=== PATIENT | female | born 1975 | race Caucasian/White ===

== ENCOUNTER 2017-04-01 17:28 | Emergency (ER) | payer MEDICARE, MEDICAID ==
[2017-04-01] MEDS ORDERED: IBUPROFEN 600 MG TABLET PO ONE (18:25)
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
--- NOTE | 2017-04-01 19:36 | RADIOLOGY REPORT (SQ) ---
EXAM DESCRIPTION: KNEE LEFT 3 VIEWS COMPLETED DATE/TIME: 04/01/2017 7:20 pm REASON FOR STUDY: fall, pain COMPARISON: None. NUMBER OF VIEWS: Three views TECHNIQUE: AP, lateral, and sunrise patella radiographic images acquired of the left knee. LIMITATIONS: None. FINDINGS: MINERALIZATION: Normal. BONES: No acute fracture or dislocation. No worrisome bone lesions. JOINT: No effusion. SOFT TISSUES: No soft tissue swelling. No radio-opaque foreign body. OTHER: No other significant finding. IMPRESSION: NEGATIVE STUDY OF THE LEFT KNEE. NO RADIOGRAPHIC EVIDENCE OF ACUTE INJURY. TECHNICAL DOCUMENTATION: JOB ID: [id number] [employer]- All Rights Reserved
[2017-04-01 20:25] VITALS: BP 130/71
== END 2017-04-01 20:25 | disposition home or self-care (01) ==
LOC: ER 17:28
DX: M25.562 Pain in left knee (principal); M54.5 Low back pain; W08.XXXA Fall from other furniture, initial encounter; F17.200 Nicotine dependence, unspecified, uncomplicated
CPT/HCPCS: 99283; 73562; L1830; A9270

== ENCOUNTER 2017-09-02 23:42 | Emergency (ER) | payer MEDICARE, MEDICAID ==
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
[2017-09-03 00:37] LABS: ABSOLUTE BASOPHILS # (AUTO) 0.1 10^3/uL (0.0-0.2); ABSOLUTE EOSINOPHILS # (AUTO) 0.2 10^3/uL (0.0-0.6); ABSOLUTE LYMPHOCYTES (AUTO) 2.3 10^3/uL (0.5-4.7); ABSOLUTE MONOCYTES (AUTO) 0.6 10^3/uL (0.1-1.4); ABSOLUTE NEUT (AUTO) 4.1 10^3/uL (1.7-8.2); BASOPHILS % (AUTO) 0.8 % (0-2); EOSINOPHILS % (AUTO) 2.9 % (0-6); HEMOGLOBIN 13.3 g/dL (12.0-15.5); MEAN CORPUSCULAR HEMOGLOBIN 32.4 pg (27.0-33.4); MEAN CORPUSCULAR VOLUME 95 fl (80-97); MONOCYTES % (AUTO) 7.9 % (3-13); PLATELET COUNT 181 10^3/uL (150-450); RED CELL DISTRIBUTION WIDTH 13.1 % (11.5-14.0); SEGMENTED NEUTROPHILS % (AUTO) 56.4 % (42-78); TOTAL CELLS COUNTED % (AUTO) 100 %; WHITE BLOOD COUNT 7.2 10^3/uL (4.0-10.5)
[2017-09-03 01:19] LABS: ALANINE AMINOTRANSFERASE 17 U/L (9-52); ALBUMIN 3.8 g/dL (3.5-5.0); ALCOHOL 106 mg/dL (NONE DETECTED); ALKALINE PHOSPHATASE 49 U/L (38-126); ANION GAP 6 (5-19); ASPARTATE AMINO TRANSFERASE 44 U/L (14-36); BILIRUBIN,DIRECT 0.4 mg/dL (0.0-0.4); BILIRUBIN,TOTAL 0.6 mg/dL (0.2-1.3); BLOOD UREA NITROGEN 12 mg/dL (7-20); CALCIUM 9.2 mg/dL (8.4-10.2); CARBON DIOXIDE 29 mmol/L (22-30); CHLORIDE 110 mmol/L (98-107); GLUCOSE 78 mg/dL (75-110); POTASSIUM 3.1 mmol/L (3.6-5.0); SODIUM 144.5 mmol/L (137-145); TOTAL PROTEIN 6.5 g/dL (6.3-8.2)
[2017-09-03 01:22] LABS: ACETAMINOPHEN < 10 ug/mL (10-30); SALICYLATE < 1.0 mg/dL (2.0-20.0)
[2017-09-03 02:42] LABS: APPEARANCE,URINE CLEAR; BILIRUBIN,URINE NEGATIVE (NEGATIVE); COLOR,URINE YELLOW; GLUCOSE, URINE NEGATIVE (NEGATIVE); KETONES,URINE NEGATIVE (NEGATIVE); LEUKOCYTE ESTERASE,URINE NEGATIVE (NEGATIVE); NITRITE,URINE NEGATIVE (NEGATIVE); PROTEIN,URINE NEGATIVE (NEGATIVE); URINE SPECIFIC GRAVITY 1.006; UROBILINOGEN,URINE NEGATIVE mg/dL (<2.0)
[2017-09-03 03:03] LABS: URINE AMPHETAMINES SCREEN NEGATIVE; URINE BARBITURATES SCREEN NEGATIVE; URINE BENZODIAZEPINES SCREEN UNCONFIRMED POSITIVE; URINE COCAINE SCREEN NEGATIVE; URINE MARIJUANA (THC) SCREEN UNCONFIRMED POSITIVE; URINE METHADONE SCREEN NEGATIVE; URINE PHENCYCLIDINE SCREEN NEGATIVE
[2017-09-03] MEDS ORDERED: ZIPRASIDONE MESYLATE INJ/PF 20 MG SDV IM ONE (07:40)
--- NOTE | 2017-09-03 07:44 | EKG REPORT ---
SEVERITY:- NORMAL ECG - SINUS RHYTHM : Confirmed by: Jomar Mark MD 03-Sep-2017 07:43:51
[2017-09-03] MEDS ORDERED: LORAZEPAM INJ 2 MG/1 ML VIAL IM ONE (08:18)
--- NOTE | 2017-09-03 09:39 | RADIOLOGY REPORT (SQ) ---
EXAM DESCRIPTION: CT HEAD WITHOUT COMPLETED DATE/TIME: 09/03/2017 9:11 am REASON FOR STUDY: Head injury COMPARISON: 03/25/2014 TECHNIQUE: Axial images acquired through the brain without intravenous contrast. Images reviewed wi th bone, brain and subdural windows. Images stored on PACS. All CT scanners at this facility use dose modulation, iterative reconstruction, and/or weight based d osing when appropriate to reduce radiation dose to as low as reasonably achievable (ALARA). [facility]: Dose Right [facility]: CareDose [facility]: Dose Right [facility]: Teradose 4D [facility]: [employer] RADIATION DOSE: CT Rad equipment meets quality standard of care and radiation dose reduction techniq ues were employed. CTDIvol: 28.0 mGy. DLP: 504 mGy-cm. mGy. LIMITATIONS: Positioning. Patient motion. FINDINGS: VENTRICLES: Normal size and contour. CEREBRUM: No masses. No hemorrhage. No midline shift. No evidence for acute infarction. Normal gra y/white matter differentiation. No areas of low density in the white matter. CEREBELLUM: No masses. No hemorrhage. No alteration of density. No evidence for acute infarction. EXTRAAXIAL SPACES: No fluid collections. No masses. ORBITS AND GLOBE: No intra- or extraconal masses. Normal contour of globe without masses. CALVARIUM: No fracture. PARANASAL SINUSES: No fluid or mucosal thickening. SOFT TISSUES: No mass or hematoma. OTHER: No other significant finding. IMPRESSION: Motion artifact. If clinical suspicion of acute intracranial injury persists, repeat im aging is recommended when the patient is more stable. EVIDENCE OF ACUTE STROKE: NO. COMMENT: Quality ID # [id number]: Final reports with documentation of one or more dose reduction techniques (e.g., Automated exposure control, adjustment of the mA and/or kV according to patient size, use of iterative reconstruction technique) TECHNICAL DOCUMENTATION: JOB ID: [id number] [employer]- All Rights Reserved Reading location - IP/workstation name: [facility]-[email or web address]
--- NOTE | 2017-09-03 09:40 | RADIOLOGY REPORT (SQ) ---
EXAM DESCRIPTION: CT CERVICAL SPINE WITHOUT COMPLETED DATE/TIME: 09/03/2017 9:11 am REASON FOR STUDY: Neck injury COMPARISON: None. TECHNIQUE: Axial images acquired through the cervical spine without intravenous contrast. Images re viewed with lung, soft tissue and bone windows. Reconstructed coronal and sagittal MPR images review ed. Images stored on PACS. All CT scanners at this facility use dose modulation, iterative reconstruction, and/or weight based d osing when appropriate to reduce radiation dose to as low as reasonably achievable (ALARA). [facility]: Dose Right [facility]: CareDose [facility]: Dose Right [facility]: Teradose 4D [facility]: Pure [employer] RADIATION DOSE: CT Rad equipment meets quality standard of care and radiation dose reduction techniq ues were employed. CTDIvol: 21.9 mGy. DLP: 393 mGy-cm. mGy. LIMITATIONS: Positioning. Patient motion. FINDINGS: ALIGNMENT: Anatomic. MINERALIZATION: Normal. VERTEBRAL BODIES: No fractures or dislocation. DISCS: No significant disc disease. FACETS, LATERAL MASSES, POSTERIOR ELEMENTS: No fractures. No dislocation. No acute findings. HARDWARE: None in the spine. VISUALIZED RIBS: No fractures. LUNG APICES AND SOFT TISSUES: No significant or acute findings. OTHER: No other significant finding. IMPRESSION: Motion artifact. No obvious fracture. If clinical suspicion of acute cervical spine in jury persists, repeat imaging is recommended when the patient is more stable. TECHNICAL DOCUMENTATION: JOB ID: [id number] Quality ID # [id number]: Final reports with documentation of one or more dose reduction techniques (e.g., Au tomated exposure control, adjustment of the mA and/or kV according to patient size, use of iterative reconstruction technique) 2010 [employer]- All Rights Reserved Reading location - IP/workstation name: [facility]-[email or web address]
[2017-09-03] MEDS ORDERED: HALOPERIDOL 5 MG TABLET PO PRN (10:01)
[2017-09-03] MEDS ORDERED: BENZTROPINE MESYLATE 1 MG TABLET PO PRN (10:03)
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
[2017-09-04] MEDS ORDERED: HALOPERIDOL LACTATE INJ 5 MG/1 ML VIAL IM ONE (02:29)
[2017-09-04] MEDS ORDERED: DIPHENHYDRAMINE HCL 50 MG/ML VIAL IM ONE (02:29)
[2017-09-04] MEDS ORDERED: ZIPRASIDONE MESYLATE INJ/PF 20 MG SDV IM ONE (08:10)
[2017-09-04] MEDS ORDERED: LORAZEPAM INJ 2 MG/1 ML VIAL IM ONE (08:10)
[2017-09-04] MEDS ORDERED: OLANZAPINE INJ/PF 10 MG SDV IM ONE (08:11)
--- NOTE | 2017-09-04 10:17 | ER Document Report ---
Doctor's Note Notes: 09/04/17 10:15 Rounds: Chart reviewed and patient interviewed. Patient is awake, but very groggy and difficult to understand anything she says. She is currently in restraints. Patient is being evaluated for agitation and combative behavior. Has been medically controlled with Ativan, Geodon, and Zyprexa. Lab studies show her to be positive drug screen for benzos and marijuana. Her alcohol level was 106. Other lab studies are essentially normal. Vital signs are all essentially normal. Conrado Levya MD
--- NOTE | 2017-09-04 16:22 | PSYCHOLOGICAL NOTE ---
Psych Note - Psych Note Psych Note: Reason for consult: Alleged overdose/erratic behavior Patient is a 42-year-old female. Clinician attempted to assess patient, patient behavior was agitated/aggressive. Patient uncooperative with assessment. Clinician observed through nurse's report patient was given an anti- psychotic due to patient actively trying to hurt herself and staff in the ED room, including hitting her head purposefully onto the floor. Behavioral health' s human resource intern gathered collateral information from patient's . For documentation purposes a copy of her note is included below. Conducted checking with patient: Patient disclosed that she took "whole prescription" of Xanax last night because she wanted to . She continues state she wants her boyfriend to " pack his sh*t and get out." She states that they have been arguing and he is been cheating on her. She states she wants to hurt him but knows that a murder charge was much higher and this is why she decided to take the medication. Patient states that she has been through this before; "nothing I say matters... you do not listen." Patient again states that she wants to hurt her significant other but denies wanting to hurt herself; " I just wanted to stop the arguing." She states she currently is not on medication and has not been going to therapy stating, "there is no pill on earth that is going to change my personality." Clinician notes patient got into bed turned her back and refused to further engage. While clinician was evaluating another patient, this patient attempted to elope became very aggressive and required 4 point restraints and medication. Patient is alert and orientated to person, place, time and circumstance. Mood is irritable with liable affect. Patient endorses both suicidal and homicidal ideation with attempt of overdose last night. Delusions are absent and behaviors congruent with intact reality based presentation i.e. organized and linear thought processes. Eye contact was fair. Conversational speech was liable moving back and forth from yelling to speaking quietly. Attention and concentration are poor. Insight, judgment, impulse control are currently poor. Diagnosis: 296.80 ( F31.9) Unspecified Bipolar Disorder per history Medication recommendation made by [facility] contracted psychiatric provider Dr. Rosio MD. includes: 1 Haldol 5 mg every 8 hours 2. Cogentin 1 mg twice daily Impression/Plan: Recommendation to maintain involuntary commitment. Patient is still demonstrating liable affect with irritable mood. Patient attempted to elope became physically aggressive. During evaluation patient made multiple comments homicidal ideation and confirmed last night overdose attempt. Patient will be reevaluated consulted with Dr. Mccormick regarding the management and care of patient.
[2017-09-04] MEDS: BENZTROPINE MESYLATE 1 MG TABLET PO SCH (18:08)
[2017-09-04] MEDS: HALOPERIDOL 5 MG TABLET PO SCH (18:08)
[2017-09-05] MEDS: HALOPERIDOL 5 MG TABLET PO SCH ×2 (02:15→09:36)
[2017-09-05] MEDS: BENZTROPINE MESYLATE 1 MG TABLET PO SCH (09:36)
--- NOTE | 2017-09-05 12:59 | PSYCHOLOGICAL NOTE ---
Psych Note - Psych Note Psych Note: Reason for consult: Alleged overdose/erratic behavior Patient is a 42-year-old female. Clinician attempted to assess patient, patient behavior was agitated/aggressive. Patient uncooperative with assessment. Clinician observed through nurse's report patient was given an anti- psychotic due to patient actively trying to hurt herself and staff in the ED room, including hitting her head purposefully onto the floor. Behavioral health' s industrial engineering intern gathered collateral information from patient's . For documentation purposes a copy of her note is included below. Conducted checking with patient: Patient disclosed that she is feeling much better. She has little memory of what has been occurring the last few days. She thinks clinician for assisting her. Patient does become tearful when discussing her marital situation expressing that the patient's has been cheating on her. She feels that locally she does not have resources so does have plans to move to [place], [place] with her daughter to start over. She identified a friend lives there and has offered her financial assistance in moving there. She disclosed the last time she has a break down like this was in 2000. She identified her provider as Linda Oden [facility], and disclosed she is a stronger support system. Patient is alert and orientated to person, place, time and circumstance. Mood is euthymic with liable affect (patient is tearful when thinking of her marriage ). Patient denies both suicidal and homicidal ideation. Delusions are absent and behaviors congruent with intact reality based presentation i.e. organized and linear thought processes. Eye contact was well maintained. Conversational speech was within normal rate tone and prosody. Attention and concentration are good. Insight, judgment, impulse control are currently good. Medication recommendation made by [facility]'s contracted psychiatric provider Dr. Rosio MD. includes: 1 Haldol 5 mg every 8 hours 2. Cogentin 1 mg twice daily Diagnosis: 296.80 ( F31.9) Unspecified Bipolar Disorder per history Impression/Plan: Recommendation to rescind involuntary commitment and is cleared for psychological evaluation. Patient no longer meets IVC criteria per [place] GS 122C. Patient is calm and pleasant to speak with and denies wanting to hurt herself or others. Patient discloses that her last breakdown was in 2000 and identifies the current stressor was her perceived end of her marriage. Patient states that she has a strong support with her provider and is thinking of moving to [place], [place] to stay with a friend. Patient is demonstrating insight and judgment while discussing her current situation and successfully problem-solved with clinician. Patient is recommended to follow up with your out patient provider, Linda Oden, in 3-5 days for her continued mental jarek treatment. Dr. Mccormick was consulted on the care and management of this patient; attending physician is in agreement with recommendations and disposition.
--- NOTE | 2017-09-05 13:14 | ER Document Report ---
Doctor's Note Notes: 09/05/17 13:13 Rounds: Chart reviewed and patient interviewed. Patient is doing much better than when she was admitted a couple of days ago. Very vibrant and happy and wishes to go home. Vital signs are all normal. No labs to review. Patient appears to be medically stable for transfer or discharge. Conrado Leyva MD
[2017-09-05 13:32] VITALS: BP 138/65
== END 2017-09-05 13:34 | disposition home or self-care (01) ==
LOC: ER 23:42
DX: T42.4X2A Poisoning by benzodiazepines, intentional self-harm, initial encounter (principal); R45.6 Violent behavior; F10.129 Alcohol abuse with intoxication, unspecified; E87.6 Hypokalemia; X58.XXXA Exposure to other specified factors, initial encounter
CPT/HCPCS: 93005; 36415; 80307 ×4; 84703; 85025; 80053; 81001; 93010; A9270 ×2; J2060; J3486; J1200; J1630

== ENCOUNTER → 2017-09-20 | Outpatient (CLI) | payer MEDICARE, MEDICAID ==
--- NOTE | 2017-09-20 15:31 | RADIOLOGY REPORT (SQ) ---
EXAM DESCRIPTION: U/S RETROPERITON (RENAL/AORTA) COMPLETED DATE/TIME: 09/20/2017 2:59 pm REASON FOR STUDY: MICROSCOPIC HEMATURIA R31.29 OTHER MICROSCOPIC HEMATURIA R31.9 HEMATURIA, UNSPEC IFIED COMPARISON: None. TECHNIQUE: Dynamic and static grayscale images acquired of the kidneys and bladder and recorded on P ACS. Additional selected color Doppler and spectral images recorded. LIMITATIONS: None. FINDINGS: RIGHT KIDNEY: Normal size, 10.4 cm in length. Normal echogenicity. 1 cm benign fatty alicia ical nodule right upper pole kidney. No cysts. No hydronephrosis. No calcifications. LEFT KIDNEY: Normal size, 10.4 cm in length. Normal echogenicity. No solid or suspicious masses. No hydronephrosis. No calcifications. BLADDER: Decompressed not well seen OTHER FINDINGS: No other significant finding. IMPRESSION: No hydronephrosis. Right upper pole 1 cm angiomyolipoma No gross left renal findings. Bladder decompressed TECHNICAL DOCUMENTATION: JOB ID: [id number] [employer]- All Rights Reserved Reading location - IP/workstation name: [email or web address]
== END ==
LOC: RAD 14:22
PROVIDERS: ATTEND Urology
DX: R31.29 Other microscopic hematuria (principal)
CPT/HCPCS: 76770

== ENCOUNTER → 2017-10-04 | Outpatient (CLI) | payer MEDICARE, MEDICAID ==
--- NOTE | 2017-10-04 09:01 | RADIOLOGY REPORT (SQ) ---
EXAM DESCRIPTION: CT ABD/PELVIS COMBO COMPLETED DATE/TIME: 10/04/2017 8:44 am REASON FOR STUDY: R31.29 OTHER MICROSCOPIC HEMATURIA R31.29 OTHER MICROSCOPIC HEMATURIA COMPARISON: Ultrasound TECHNIQUE: CT scan of the abdomen and pelvis performed with and without intravenous contrast, and wi thout oral contrast. Contrasted imaging performed helical scanning technique and dynamic intravenous contrast injection. Images reviewed with lung, soft tissue, and bone windows. Reconstructed coronal a nd sagittal MPR images reviewed. Delayed images for evaluation of the urinary system also acquired. A ll images stored on PACS. All CT scanners at this facility use dose modulation, iterative reconstruction, and/or weight based d osing when appropriate to reduce radiation dose to as low as reasonably achievable (ALARA). [facility]: Dose Right [facility]: CareDose [facility]: Dose Right [facility]: Teradose 4D [facility]: [employer] CONTRAST TYPE AND DOSE: contrast/concentration: Isovue 370.00 mg/ml; Total Contrast Delivered: 76.0 ml; Total Saline Delivered: 67.0 ml RENAL FUNCTION: None required. The patient is less than 50 years old. RADIATION DOSE: CT Rad equipment meets quality standard of care and radiation dose reduction techniq ues were employed. CTDIvol: 9.2 - 9.5 mGy. DLP: 1397 mGy-cm. . LIMITATIONS: None. FINDINGS: NON-CONTRASTED IMAGING: No significant renal or bladder calcifications. No other significa nt organ calcifications. POST-CONTRASTED IMAGING: LOWER CHEST: No significant findings. No nodules or infiltrates. LIVER: Normal size. No masses. No dilated ducts. SPLEEN: Normal size. No focal lesions. PANCREAS: No masses. No significant calcifications. No adjacent inflammation or peripancreatic fluid collections. Pancreatic duct not dilated. GALLBLADDER: Surgically absent. ADRENAL GLANDS: No significant masses or asymmetry. RIGHT KIDNEY AND URETER: No solid masses. The area of concern thought to be angio Bebo lipoma on ultr asound appears to be a focal scar containing fat. No significant calcifications. No hydronephrosi s or hydroureter. LEFT KIDNEY AND URETER: There is a 2.8 cm round solid mass in the upper pole of the left kidney. Rick nsfield units in the 30s. No significant calcifications. No hydronephrosis or hydroureter. AORTA AND VESSELS: No aneurysm. No dissection. Renal arteries, SMA, celiac without stenosis. RETROPERITONEUM: No retroperitoneal adenopathy, hemorrhage or masses. BOWEL AND PERITONEAL CAVITY: No masses or inflammatory changes. No free fluid or peritoneal masses. APPENDIX: Not visualized. PELVIS: No mass. No free fluid. Normal bladder. ABDOMINAL WALL: No masses. No hernias. BONES: No significant or acute findings. OTHER: No other significant finding. IMPRESSION: 2.8 cm round solid mass in the upper pole the left kidney. Hounsfield units in the 30's . TECHNICAL DOCUMENTATION: JOB ID: [id number] Quality ID # [id number]: Final reports with documentation of one or more dose reduction techniques (e.g., Au tomated exposure control, adjustment of the mA and/or kV according to patient size, use of iterative reconstruction technique) 2010 [employer]- All Rights Reserved Reading location - IP/workstation name: [email or web address]
== END ==
LOC: RAD 08:26
PROVIDERS: ATTEND Urology
DX: R31.29 Other microscopic hematuria (principal); N28.89 Other specified disorders of kidney and ureter
CPT/HCPCS: 74178

== ENCOUNTER → 2017-11-01 | Outpatient (CLI) | payer MEDICARE, MEDICAID ==
--- NOTE | 2017-11-01 14:36 | RADIOLOGY REPORT (SQ) ---
EXAM DESCRIPTION: U/S RETROPERITON (RENAL/AORTA) COMPLETED DATE/TIME: 11/01/2017 2:02 pm REASON FOR STUDY: RENAL CYST (N28.1) N28.1 CYST OF KIDNEY, ACQUIRED COMPARISON: 09/20/2017 TECHNIQUE: Dynamic and static grayscale images acquired of the kidneys and bladder and recorded on P ACS. Additional selected color Doppler and spectral images recorded. LIMITATIONS: None. FINDINGS: RIGHT KIDNEY: Normal size. 1 cm echogenic lesion recently shown to be fat within scarri ng. No solid or suspicious masses. No hydronephrosis. No calcifications. LEFT KIDNEY: Normal size. 2.2 cm cystic lesion upper pole. No solid or suspicious masses. No h ydronephrosis. No calcifications. BLADDER: No masses. OTHER FINDINGS: No other significant finding. IMPRESSION: Hyperdense cyst left kidney. TECHNICAL DOCUMENTATION: JOB ID: [id number] [employer]- All Rights Reserved Reading location - IP/workstation name: [email or web address]
== END ==
LOC: RAD 13:36
PROVIDERS: ATTEND Urology
DX: N28.1 Cyst of kidney, acquired (principal)
CPT/HCPCS: 76770

== ENCOUNTER → 2018-03-30 | Outpatient (CLI) | payer MEDICARE, MEDICAID ==
--- NOTE | 2018-03-31 09:33 | RADIOLOGY REPORT (SQ) ---
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 RADIONUCLIDE AND DOSE: 10.7 mCi F18 FDG The route of agent administration: Intravenous FASTING BLOOD SUGAR: 82 mg/dl CONTRAST TYPE AND DOSE: No CT contrast given. TECHNIQUE: Blood glucose level was verified. Above dose of FDG was injected intravenously. 2-D seg mented attenuation correction images were obtained from the base of the skull to the midthighs. Nonc ontrast CT images were obtained for attenuation correction and fusion with emission images. CT image s were performed without oral or intravenous contrast and are not sensitive for parenchymal lesions. A series of overlapping emission PET images were obtained. Images reviewed and manipulated at [facility] work station by the radiologist. Images stored on PACS. LIMITATIONS: None. FINDINGS: HEAD AND NECK: No areas of abnormal metabolic activity in the soft tissues of the head and neck. CHEST: No areas of abnormal metabolic activity in the chest. ABDOMEN AND PELVIS: No areas of abnormal metabolic activity in the abdomen or pelvis. Expected physi ologic activity is present in the genitourinary system and bowel. PROXIMAL LOWER EXTREMITIES: No areas of abnormal metabolic activity in the soft tissues of the lower extremities. BONES: No significant uptake. Uptake associated with left 6th, 7th, and 8th rib fractures. ADDITIONAL CT FINDINGS: There are 2 faint lung nodules in the upper lobes, the largest 2 mm left uppe r lobe image 66. Stable complex cyst left kidney. OTHER: No other significant findings. IMPRESSION: No evidence of malignancy. Faint lung nodules below size threshold for sufficient negative predictive value. TECHNICAL DOCUMENTATION: JOB ID: [id number] [employer]- All Rights Reserved Reading location - IP/workstation name: [email or web address]
== END ==
LOC: RAD 17:52
PROVIDERS: ATTEND Internal Medicine Medical Oncology
DX: C85.94 Non-Hodgkin lymphoma, unspecified, lymph nodes of axilla and upper limb (principal); R91.1 Solitary pulmonary nodule
CPT/HCPCS: 78815; A9552